=== PATIENT | female | born 2000 | race Caucasian/White ===

== ENCOUNTER 2025-01-15 00:03 | Inpatient (IN) | payer OTHER ==
[2025-01-15] MEDS ORDERED: LIDOCAINE HCL 1% 30 ML SDV INJ PRN (00:15)
[2025-01-15] MEDS ORDERED: LACTATED RINGER'S 1,000 ML IV PRN (00:15)
[2025-01-15] MEDS ORDERED: MAGNESIUM HYDROXIDE/AL HYDROX 30 ML CUP PO PRN ×2 (00:15→16:15)
[2025-01-15] MEDS ORDERED: OXYTOCIN/0.9 % SODIUM CHLORIDE 30 UNITS/500 ML BAG IV SCH ×2 (00:15→10:15)
[2025-01-15] MEDS ORDERED: CALCIUM CARBONATE 500 MG CHEW PO PRN ×2 (00:15→16:15)
[2025-01-15] MEDS ORDERED: TERBUTALINE SULFATE 1 MG/ML AMP SUB-Q PRN (00:15)
[2025-01-15 00:40] VITALS: BP 128/78
[2025-01-15 00:45] LABS: AMPHETAMINES, URINE NEGATIVE (NEGATIVE); BARBITURATES, URINE NEGATIVE (NEGATIVE); BENZODIAZEPINE, URINE NEGATIVE (NEGATIVE); CANNABINOID, URINE NEGATIVE (NEGATIVE); COCAINE, URINE NEGATIVE (NEGATIVE); ECSTASY, URINE NEGATIVE (NEGATIVE); FENTANYL, URINE NEGATIVE (NEGATIVE); METHADONE, URINE NEGATIVE (NEGATIVE); OPIATES, URINE NEGATIVE (NEGATIVE); OXYCODONE, URINE NEGATIVE (NEGATIVE); PHENCYCLIDINE, URINE NEGATIVE (NEGATIVE)
[2025-01-15 00:56] LABS: MCH 30.3 PG (25.6-32.2); MCHC 33.4 g/dL (32.2-35.5); MCV 90.7 fL (79.4-94.8); RBC 3.96 M/uL (3.93-5.22)
[2025-01-15 01:26] LABS: ABO O; RH POSITIVE
[2025-01-15 01:27] LABS: ANTIBODY SCREEN NEGATIVE
[2025-01-15 08:15] LABS: PROTEIN, RANDOM URINE <6 mg/dL (NOT ESTABLISHED)
[2025-01-15 08:20] LABS: ALT (SGPT) 34.0 U/L (14-59); AST (SGOT) 23.0 U/L (15-37); GLOMERULAR FILTRATION RATE,EST 97.0 mL/min (>60); LACTATE DEHYDROGENASE 251.0 U/L (81-234); PROTEIN, TOTAL 6.7 g/dL (6.4-8.2); UREA NITROGEN 10.0 mg/dL (7-18)
[2025-01-15] MEDS ORDERED: ACETAMINOPHEN 325 MG TAB PO PRN (16:15)
[2025-01-15] MEDS ORDERED: OXYTOCIN/0.9 % SODIUM CHLORIDE 500 ML IV SCH (16:15)
[2025-01-15] MEDS ORDERED: HYDROCORTISONE ACETATE 25 MG SUPP PR PRN (16:15)
[2025-01-15] MEDS ORDERED: MAGNESIUM HYDROXIDE 30 ML UDC PO PRN (16:15)
[2025-01-15] MEDS ORDERED: IBUPROFEN 600 MG TAB PO PRN (16:15)
[2025-01-15] MEDS ORDERED: LIDOCAINE 2% VISCOUS 6 ML SYR TOP ONE ×2 (16:15)
[2025-01-15] MEDS ORDERED: BENZOCAINE 60 ML AEROSOL TOP PRN (16:15)
[2025-01-15] MEDS ORDERED: WITCH HAZEL/GLYCERIN 1 EA PAD TOP PRN (16:15)
[2025-01-15] MEDS ORDERED: SENNOSIDES/DOCUSATE 1 EA TAB PO SCH (21:00)
[2025-01-16 05:23] LABS: BASOPHILS 0.1 % (0.1-1.2); EOSINOPHILS 0.3 % (0.7-5.8); LYMPHOCYTES 13.0 % (19.3-51.7); MCH 30.5 PG (25.6-32.2); MCHC 33.9 g/dL (32.2-35.5); MCV 90.2 fL (79.4-94.8); MONOCYTES 8.7 % (4.7-12.5); NEUTROPHILS 77.3 % (34.0-71.1); RBC 3.47 M/uL (3.93-5.22)
== END 2025-01-16 17:10 | disposition home or self-care (01) | DRG 807 ==
LOC: FBC 00:03
PROVIDERS: Advanced Practice Midwife; ADMIT Obstetrics & Gynecology; ATTEND Obstetrics & Gynecology
PROC: 10E0XZZ Delivery of Products of Conception, External Approach (ICD-10-PCS; principal; 2025-01-15)
PROC: 0UQMXZZ Repair Vulva, External Approach (ICD-10-PCS; 2025-01-15)
PROC: 3E033VJ Introduction of Other Hormone into Peripheral Vein, Percutaneous Approach (ICD-10-PCS; 2025-01-15)
DX: O48.0 Post-term pregnancy (principal); Z37.0 Single live birth; O69.81X0 Labor and delivery complicated by cord around neck, without compression, not applicable or unspecified; O70.0 First degree perineal laceration during delivery; Z3A.40 40 weeks gestation of pregnancy
CPT/HCPCS: 36415; 80053; 80307; 82565; 82570; 83615; 84156; 84550; 85025; 85027; 86850; 86900; 86901; A9270; J7121